=== PATIENT | male | born 1980 | race Two or more races ===

== ENCOUNTER 2025-01-01 04:29 | Emergency (ER) | payer BC, SELFPAY ==
[2025-01-01 04:30] VITALS: BMI 31.6
[2025-01-01 04:35] VITALS: BP 147/97; PULSE 77; RESP 18; TEMP 36.6; O2SAT 97
--- NOTE | 2025-01-01 05:53 | EDRME_ITS ---
Rapid Medical Screening Exam [facility] Arrival date/time: 01/01/25 04:29 44M with history of DM presents to ED with several days of L lower back pain that radiates down LLE. Patient denies fall/trauma, dysuria/hematuria, bowel/bladder incontinence, and saddle paresthesia. Patient takes muscle relaxers w/o relief. Chief Complaint: Back Pain/Injury Vital signs: Vital Signs Temperature 97.8 F 01/01/25 04:35 Pulse Rate 77 01/01/25 04:35 Respiratory Rate 18 01/01/25 04:35 Blood Pressure 147/97 H 01/01/25 04:35 Pulse Oximetry (%) 97 01/01/25 04:35 Oxygen Delivery Method Room Air 01/01/25 04:35
[2025-01-01] MEDS: KETOROLAC INJ 60 MG/2 ML VIAL IM (06:10)
[2025-01-01] MEDS: GABAPENTIN 300 MG CAPSULE PO (06:11)
--- NOTE | 2025-01-01 07:43 | EDNOTE_ITS ---
ED Back Injury Pain RME/HPI General Chief Complaint: Back Pain/Injury Stated Complaint: LEFT SIDED HIP PAIN RAD DOWN LEG Time Seen by Provider: 01/01/25 06:15 Arrival date/time: 01/01/25 04:29 Limitations: no limitations RME / HPI RME / HPI Narrative: 01/01/25 04:29 44M with history of DM presents to ED with several days of L lower back pain that radiates down LLE. Patient denies fall/trauma, dysuria/hematuria, bowel/bladder incontinence, and saddle paresthesia. Patient takes muscle relaxers w/o relief. History of same. No history of IV drug use. No fever. States has been trying to be more active walking up a hill and new workout regimen. Denies drug allergy Related Data Home Medications ?Medication ?Instructions ?Recorded ?Confirmed metformin 500 mg tablet 500 mg PO BID 10/26/1905/11 Previous Rx's ?Medication ?Instructions ?Recorded naproxen 500 mg tablet 500 mg PO BID PRN pain #30 t abs 07/15/20 diazepam 10 mg tablet (Valium) 10 mg PO BID PRN muscle spasm #14 12/21/21 tabs naproxen 500 mg tablet (Naprosyn) 500 mg PO BID #30 ta bs 12/21/21 pantoprazole 40 mg tablet,delayed 40 mg PO QDAY #20 ta bs 02/24/23 release (Protonix) baclofen 20 mg tablet 20 mg PO QDAY #20 tabs 01/01 meloxicam 7.5 mg tablet 7.5 mg PO QDAY #14 tabs 02/20 prednisone 20 mg tablet See Taper PO QDAY 5 days #15 tabs 01/01/25 Allergies Allergy/AdvReac Type Severity Reaction Status Date / Time No Known Allergies Allergy Verified 01/01/25 04:32 Review of Systems Review of Systems Systems Reviewed: All systems reviewed, normal except as documented Constitutional Constitutional: Denies weakness Musculoskeletal Musculoskeletal: Reports as per HPI and Denies abnormal gait Neurologic Neurologic: Denies abnormal gait, Reports radicular pain, Reports restless legs, Denies tremor(s), Denies weakness and Denies other (No loss of bowel or bladder control) ED Exam General Limitations: Present no limitations General appearance: Present alert and in no apparent distress Eye Eye exam: Present normal appearance, PERRL and EOMI Neck Neck exam: Present normal inspection, full ROM and trachea midline Respiratory Respiratory exam: Present normal lung sounds bilaterally Cardiovascular Cardiovascular exam: Present regular rate, normal rhythm and normal heart sounds Abdominal Exam Abdominal exam: Present soft and normal bowel sounds Extremities Exam Extremities exam: Present normal inspection and full ROM Back Exam Back exam: Present normal inspection, full ROM and sciatic notch tenderness (L) Neurological Exam Neurological exam: Present alert and oriented X3 Skin Skin exam: Present warm, dry, intact and normal color Course Quality Measures none Orders Category Date Time Status US venous doppler LE LT Stat Exams 01/01/25 05:53 Stop Req Gabapentin [Neurontin] Med 01/01/25 05:53 Discontinued 300 mg PO X1 ONE Ketorolac Inj [Toradol Inj] Med 01/01/25 05:53 Discontinued 60 mg IM X1 ONE Vital Signs Vital signs: Vital Signs Temperature 97.8 F 01/01/25 04:35 Pulse Rate 77 01/01/25 04:35 Respiratory Rate 18 01/01/25 04:35 Blood Pressure 147/97 H 01/01/25 04:35 Pulse Oximetry (%) 97 01/01/25 04:35 Oxygen Delivery Method Room Air 01/01/25 04:35 Back Pain / Injury MDM Narrative MDM Narrative:: Patient elected to leave before ultrasound of lower extremity we will try medical management. Advised may come back if symptoms return elected to terminate visit prior to results follow-up with PCP return to ER symptoms worsen red flags of back pain reviewed Patient data External records reviewed:: [facility] previous records Clinical information provided by:: patient Social determinants that could affect healthcare access:: other (specify) (No PCP appointment on weekends) Patient has the following chronic illnesses:: History of low back pain How is presenting disease/condition affected by chronic disease/condition?: exacerbated by Evaluation data The following diagnostics were reviewed and interpreted by me:: radiology exam(s) Lab and/or radiology exams considered but not ordered:: Considered CT or MRI of spine however patient did not want to wait for that type of testing, also considered UA for possible UTI although not likely given clinical symptoms Interpretation Summary: No imaging was interpreted as patient terminated orders prior to completion Medications / Prescriptions Medications or Prescriptions considered but not ordered:: Narcotics were considered however given chronic should follow-up with primary care Medication administrations:: Medication Administration History Discontinued Medications Gabapentin (Gabapentin 300 Mg Capsule) 300 mg PO X1 ONE Stop: 01/01/25 05:54 Last Admin: 01/01/25 06:11 Dose: 300 mg Documented By: EE Ketorolac Tromethamine (Ketorolac Inj 60 Mg/2 Ml Vial) 60 mg IM X1 ONE Stop: 01/01/25 05:54 Last Admin: 01/01/25 06:10 Dose: 60 mg Documented By: EE Steroids, muscle relaxers, NSAIDs were given for home Consultations Consultation(s) initiated? (list below): No Diagnosis Differential diagnosis back pain/injury: lumbar radiculopathy, sciatica, strain of lumbar region, renal colic, pyelonephritis and discitis Most likely diagnosis given after review of the tests above:: Recurrent sciatica left-sided Admission Indicated Admission indicated?: not indicated Admission Request Was there a request for admission?: No Disposition Plan Disposition Plan: Discharge Discharge Attestation Discharge Attestation: The patient and all family members were given an opportunity to ask questions and understood the discharge instructions. Discharge instructions specifically effects, indications for sooner follow up or return to the emergency department, and the expected course of current diagnosis. Patient condition: Stable Discharge Plan Plan Patient Disposition: HOME (Self Care) Disposition Comment: f/u with pcp in 2-3 days Prescriptions/Referrals Prescriptions/Med Rec: New prednisone 20 mg tablet See Taper PO QDAY 5 Days Qty: 15 0RF Taper: Prednisone Taper 20 mg DAILY for 2 Days and 0 Hour 10 mg DAILY for 2 Days and 0 Hour 5 mg DAILY for 7 Days and 0 Hour baclofen 20 mg tablet 20 mg PO QDAY Qty: 20 0RF meloxicam 7.5 mg tablet 7.5 mg PO QDAY Qty: 14 0RF No Action naproxen 500 mg tablet 500 mg PO BID PRN (Reason: pain) Qty: 30 0RF metformin 500 mg Tablet 500 mg PO BID diazepam [Valium] 10 mg tablet 10 mg PO BID PRN (Reason: muscle spasm) Qty: 14 0RF naproxen [Naprosyn] 500 mg tablet 500 mg PO BID Qty: 30 0RF pantoprazole [Protonix] 40 mg tablet,delayed release (DR/EC) 40 mg PO QDAY Qty: 20 0RF Referrals: No Primary/Family,Physician [Primary Care Provider] - In 1 week Problem List Clinical Impression: Sciatica Patient/Caregiver Discharge Instructions Education Materials: ED Sciatica Print Language: Chinese Stand Alone Forms: Tania Award Info., Patient Portal Info Letter PA/CONSULTING MARINE ENGINEER Supervising Physician PA/CONSULTING MARINE ENGINEER Supervising Physician: Dr. Yin
== END 2025-01-01 07:53 | disposition home or self-care (01) ==
PROVIDERS: Emergency Provider Emergency Medicine
DX: M54.42 Lumbago with sciatica, left side (principal)
CPT/HCPCS: 96372; 99283; J1885; A9270

== ENCOUNTER 2025-07-27 18:26 | Emergency (ER) | payer BC, SELFPAY ==
[2025-07-27 18:27] VITALS: BMI 32.5
[2025-07-27 18:45] VITALS: BP 132/92; PULSE 110; RESP 20; TEMP 36.6; O2SAT 95
--- NOTE | 2025-07-27 18:56 | PD.EDWOUND ---
ED Wound/Laceration-RME/HPI General Chief Complaint: Wound/Laceration Stated Complaint: LAC TO L EAR Time Seen by Provider: 07/27/25 18:54 Arrival date/time: 07/27/25 18:26 45M with history of DM presents to ED with L ear/facial lac after he accidentally ran into a pole. Patient denies LOC, AMS, N/V, and vision changes. Patient has not had a tetanus shot in the past 5 years. Limitations: no limitations Related Data Home Medications ?Medication ?Instructions ?Recorded ?Confirmed metformin 500 mg tablet 500 mg PO BID 10/26/19 05/11/20 Previous Rx's ?Medication ?Instructions ?Recorded naproxen 500 mg tablet 500 mg PO BID PRN pain #30 tabs 07/15/20 diazepam 10 mg tablet (Valium) 10 mg PO BID PRN muscle spasm #14 12/21/21 tabs naproxen 500 mg tablet (Naprosyn) 500 mg PO BID #30 tabs 12/21/21 pantoprazole 40 mg tablet,delayed 40 mg PO QDAY #20 tabs 02/24/23 release (Protonix) baclofen 20 mg tablet 20 mg PO QDAY #20 tabs 01/01/25 meloxicam 7.5 mg tablet 7.5 mg PO QDAY #14 tabs 01/01/25 Allergies Allergy/AdvReac Type Severity Reaction Status Date / Time No Known Allergies Allergy Verified 07/27/25 18:29 Review of Systems Review of Systems Systems Reviewed: All systems reviewed, normal except as documented Integumentary/Breasts Skin/Breast: Reports as per HPI and Reports skin pain Past Medical History Past Medical History NEUROLOGIC: Negative Neurological Disorders CARDIAC: Negative Cardiac Disorders or Congestive Heart Failure RESPIRATORY: Negative Chronic Obstructive Pulmonary Disease (COPD) GASTROINTESTINAL: Positive Pancreatitis and Gall Bladder Disease; Negative Gastrointestinal Disorders GENITOURINARY: Positive Genitourinary Disorders and Kidney Stones; Negative Renal Disease MUSCULOSKELETAL: Negative Musculoskeletal Disorders ENDOCRINE: Positive Diabetes Mellitus Type 2; Negative Diabetes Mellitus Type 1 OTHER HISTORY: Negative Hospitalization Social History SMOKING STATUS: Never smoker SUBSTANCE USE: marijuana (states he smokes marijuana everyday ) ED Exam General Limitations: Present no limitations General appearance: Present alert and in no apparent distress Expanded Head Exam Head exam physical: Present laceration (L facial 0.25 cm superficial) Eye Eye exam: Present PERRL, EOMI and other (R lazy eye) ENT ENT exam: Present mucous membranes moist Expanded ENT Exam External ear exam: Present other (1 cm lac at entrance of L ear canal) Neck Neck exam: Present normal inspection, full ROM and trachea midline Chest Chest inspection: Present normal inspection and symmetric chest wall rise Neurological Exam Neurological exam: Present alert and oriented X3 Psychiatric Psychiatric exam: Present normal affect and normal mood Skin Skin exam: Present warm, dry, intact and normal color Course Quality Measures none Orders Category Date Time Status Set Up Suture Tray STAT Care 07/27/25 18:54 Active Wound Care NOW Care 07/27/25 18:54 Active TET,DIP/PERT AC (Adult)-Tdap [Boostrix Adult (Tdap) Med 07/27/25 18:54 Discontinued Vacc] 0.5 ml IMI .ONCE ONE Vital Signs Vital signs: Vital Signs Temperature 97.9 F 07/27/25 18:45 Pulse Rate 110 H 07/27/25 18:45 Respiratory Rate 20 07/27/25 18:45 Blood Pressure 132/92 H 07/27/25 18:45 Pulse Oximetry (%) 95 07/27/25 18:45 Oxygen Delivery Method Room Air 07/27/25 18:45 O2 at 95% on RA and WNLs Wound / Laceration MDM Narrative MDM Narrative:: 45M with history of DM presents to ED with L ear/facial lac after he accidentally ran into a pole. Patient denies LOC, AMS, N/V, and vision changes. Patient has not had a tetanus shot in the past 5 years. Physical exam reveals several small and superficial lacs on L face/ear lobe all less than 0.25 cm. Larger 1 cm lac at entrance of L ear canal. Canal and TM itself intact. Normal pupil response and EOM. 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 Speech normal. Gait normal. Patient is afebrile, calm, and alert. Wounds cleaned/irrigated and small lacs closed with combo of glue and steri-strips. Larger lac closed with 4 stitches. Given academic counselor to have them removed in about 10 days. Tdap also given. Patient data External records reviewed:: [facility] previous records Clinical information provided by:: patient Social determinants that could affect healthcare access:: none Patient has the following chronic illnesses:: DM How is presenting disease/condition affected by chronic disease/condition?: uneffected by Evaluation data The following diagnostics were reviewed and interpreted by me:: other (specify) (none) Lab and/or radiology exams considered but not ordered:: not ordered Interpretation Summary: n/a Medications / Prescriptions Medications or Prescriptions considered but not ordered:: ordered Medication administrations:: Medication Administration History Discontinued Medications Diphtheria/Tetanus/Acell Pertussis (Diphth,Pertuss(Acell),Tet Vac 0.5 Ml Syr- Adult) 0.5 ml IMi .ONCE ONE Stop: 07/27/25 18:55 Last Admin: 07/27/25 19:37 Dose: 0.5 ml Documented By: above Consultations Consultation(s) initiated? (list below): No Diagnosis Wound Differential Diagnosis: laceration, abrasion, avulsion of skin and other (laceration and CHI) Most likely diagnosis given after review of the tests above:: laceration and CHI Admission Indicated Admission indicated?: not indicated Admission Request Was there a request for admission?: No Disposition Plan Disposition Plan: Discharge Discharge Attestation Discharge Attestation: The patient and all family members were given an opportunity to ask questions and understood the discharge instructions. Discharge instructions specifically effects, indications for sooner follow up or return to the emergency department, and the expected course of current diagnosis. Patient condition: Stable Discharge Plan Plan Patient Disposition: HOME (Self Care) Discharge Disposition comment: Stable Prescriptions/Referrals Prescriptions/Med Rec: No Action naproxen 500 mg tablet 500 mg PO BID PRN (Reason: pain) Qty: 30 0RF metformin 500 mg Tablet 500 mg PO BID diazepam [Valium] 10 mg tablet 10 mg PO BID PRN (Reason: muscle spasm) Qty: 14 0RF naproxen [Naprosyn] 500 mg tablet 500 mg PO BID Qty: 30 0RF pantoprazole [Protonix] 40 mg tablet,delayed release (DR/EC) 40 mg PO QDAY Qty: 20 0RF baclofen 20 mg tablet 20 mg PO QDAY Qty: 20 0RF meloxicam 7.5 mg tablet 7.5 mg PO QDAY Qty: 14 0RF Problem List Clinical Impression: Laceration, CHI (closed head injury) Patient/Caregiver Discharge Instructions Education Materials: ED Head Injury with Sleep ..., ED Laceration, Face: Stitches or Tape Additional Instructions: Please follow-up with PCP within 24-48 hours and return immediately if symptoms worsen. For the next 24-48 hours, watch for unexplained nausea/vomiting, confusion, lethargy, not acting like yourself, and seizures. Have stitches removed in about 10 days. Print Language: Taiwanese Stand Alone Forms: Patient Portal Info Letter PA/PRE PRESS PROOFER Supervising Physician PA/PRE PRESS PROOFER Supervising Physician: Dr. Mcdonald
[2025-07-27] MEDS: DIPHTH,PERTUSS(ACELL),TET VAC 0.5 ML SYR- ADULT IMi (19:37)
== END 2025-07-27 20:50 | disposition home or self-care (01) ==
LOC: SERX 21:34
PROVIDERS: Emergency Provider Emergency Medicine
DX: S01.312A Laceration without foreign body of left ear, initial encounter (principal); W22.09XA Striking against other stationary object, initial encounter; E11.9 Type 2 diabetes mellitus without complications; Z79.84 Long term (current) use of oral hypoglycemic drugs; F12.90 Cannabis use, unspecified, uncomplicated
CPT/HCPCS: 90471; 90715; 99282